=== PATIENT | male | born 2000 | race Caucasian/White ===

== ENCOUNTER 2023-11-11 03:43 | Emergency (ER) | payer OTHER ==
[~2023-11-11] VITALS: Ht 172.7 cm; Wt 75.0 kg
[2023-11-11] MEDS ORDERED: FOLIC ACID 1 MG/0.2 ML ML ONE (03:55)
[2023-11-11 03:58] LABS: BASOPHILS 0.6 % (0-2); EOSINOPHILS 1.3 % (0-6); HEMOGLOBIN 16.9 g/dL (12.0-18.0); LYMPHOCYTES 29.6 % (24-44); MCH 29.9 (27-36); MCHC 34.5 g/dl (30-36); MCV 86.8 fl (81-99); MONOCYTES 4.8 % (0-12); NEUTROPHILS 63.7 % (39-80); PLATELET COUNT 330 K/uL (140-440); RBC 5.65 M/ul (4.3-5.7); RDW 13.2 (10.5-15.0)
[2023-11-11] MEDS ORDERED: MULTIVITAMINS 10 ML,FOLIC ACID 1 MG,THIAMINE HCL 100 MG in SODIUM CHLORIDE 0.9% 1,000 ML IV ONE (04:00)
[2023-11-11] MEDS ORDERED: PANTOPRAZOLE SODIUM 40 MG/10 ML VIAL IV ONE (04:00)
[2023-11-11] MEDS ORDERED: LIDOCAINE & ANTACID 35 ML BTL PO ONE (04:00)
[2023-11-11] MEDS ORDERED: ondansetron HCL 4 MG/2 ML VIAL IV ONE (04:00)
[2023-11-11 04:15] LABS: ALBUMIN 4.5 g/dL (3.4-5.0); ALBUMIN/GLOBULIN RATIO 1.45 (1.1-2.4); ANION GAP 17.9 (7-21); BILIRUBIN, TOTAL 0.6 ng/dL (0.2-1.0); BUN/CREATININE RATIO 14.11 (6.0-28.6); CALCIUM 8.2 mg/dL (8.5-10.1); CREATININE, SERUM 0.85 mg/dL (0.70-1.30); POTASSIUM 3.9 mmol/L (3.5-5.1); PROTEIN, TOTAL 7.6 g/dL (6.4-8.2)
[2023-11-11] MEDS ORDERED: droPERidol 5 MG/2 ML VIAL IV ONE (05:15)
[2023-11-11] MEDS ORDERED: CARAFATE1 GM PO (05:20)
[2023-11-11] MEDS ORDERED: ONDANSETRON ODT8 MG PO (05:20)
[2023-11-11] MEDS ORDERED: SUCRALFATE 1 GM TAB PO ONE (05:30)
[2023-11-11 06:05] VITALS: BP 133/82
== END 2023-11-11 06:05 | disposition home or self-care (01) ==
LOC: ED 03:43
PROVIDERS: Family Medicine
DX: K29.70 Gastritis, unspecified, without bleeding (principal)
CPT/HCPCS: 36415; 80053; 83690; 84484; 85025; 96365; 96375; 99284-25; C9113; G0480; J1790; J2405; J3411; J7030

== ENCOUNTER 2025-03-28 02:20 | Emergency (ER) | payer OTHER ==
[~2025-03-28] VITALS: Ht 172.7 cm; Wt 70.0 kg
[~2025-03-28 02:20] MED LIST: CARAFATE1 GM PO; ONDANSETRON ODT8 MG PO
[2025-03-28 03:10] VITALS: BP 136/85
== END 2025-03-28 02:50 | disposition home or self-care (01) ==
LOC: ED 02:20
DX: S03.03XA Dislocation of jaw, bilateral, initial encounter (principal); X58.XXXA Exposure to other specified factors, initial encounter